=== PATIENT | female | born 1960 | race Caucasian/White ===

== ENCOUNTER 2017-07-07 05:49 | Emergency (ER) | payer SELFPAY ==
[2017-07-07] MEDS ORDERED: ONDANSETRON 4 MG/2 ML VIAL IVP ONE ×2 (06:00→06:43)
[2017-07-07] MEDS ORDERED: NS 1,000 ML IV ONE ×3 (06:01→07:00)
[2017-07-07 06:04] VITALS: TEMP 97.5
--- NOTE | 2017-07-07 06:15 | EDPHY ---
H & P Source: Patient Exam Limitations: No limitations - Personal History LMP (Females 10-55): Post Menopausal - Medical/Surgical History Hx Asthma: No Hx Chronic Respiratory Disease: No Hx Diabetes: No Hx Cardiac Disease: No Hx Renal Disease: No Hx Cirrhosis: No Hx Alcoholism: No Hx HIV/AIDS: No Hx Splenectomy or Spleen Trauma: No - Family History Significant Family History: No pertinent family hx - Social History Smoking Status: Never smoked Alcohol Use: None Drug Use: None Time Seen by Provider: 07/07/17 05:53 HPI/ROS: CHIEF COMPLAINT: vomiting for 24 hours HISTORY OF PRESENT ILLNESS: this is a medically stable 56-year-old female who is status post lap cholecystectomy several years ago. Other than that for the most part she is well and healthy. She does take Paxil for chronic depression and has been on that for years without any dose changes. Of note is that she did have a delta problem some 2 days ago was seen by an oral surgeon with plans for root canal later this month. As such she began a course of clindamycin having completed 2 doses some 36 hours ago. She felt well the other night, some 36 hours ago. Went to bed feeling fine. There is no anorexia or loss of appetite that evening. Furthermore she has no sense of known exposure. Granted she does work but none of her coworkers have been ill. However, yesterday morning approximately 24 hours ago she woke with repetitive vomiting every hour or 2. She said she has not been able to keep anything down for some 24 hours and last oral intake was 36 hours ago. Subsequently she feels unsteady on her feet and lightheaded when she gets up. Fortunately, there has been no diarrhea. She has had no abdominal pain or flank pain or dysuria frequency your fevers or chills. No known exposure. No travel. No one else is ill Diarrhea risk factors: Travel: None Others: None Antibiotics: None Bad Food: None Bad Water: None Recent Surgery: None REVIEW OF SYSTEMS: Constitutional: No fever, no chills. Eyes: No discharge ENT: No sore throat. Cardiovascular: No chest pain, no palpitations. Respiratory: No cough, shortness of breath, or wheezing. Gastrointestinal: No nausea vomiting or diarrhea. No abdominal pain. Genitourinary: No hematuria or frequency. Musculoskeletal: No back pain. Skin: No rashes. Neurological: No headache. 10 point ROS otherwise negative (Timo,Wu J) - Physical Exam Exam: General Appearance: Alert, no distress. Afebrile. Normal phonation. No respiratory distress. Eyes: Pupils equal and round no pallor or injection. No icterus ENT, Mouth: Mucous membranes dry, including her teeth. Pharynx without erythema or exudate. TM Clear. Neck: No adenopathy. Supple. No JVD. Trachea in midline. Respiratory: There are no retractions, lungs are clear to auscultation. Chest wall: Nontender to palpation. No crepitus. Cardiovascular: Regular rate and rhythm, without murmur. Abdomen: Soft, minimal tenderness in the left upper quadrant, though notes that she had no abdominal pain per se until I started pressing on her. No masses, bowel sounds normal. Neurological: Ox3. No motor weakness. Sensation intact. Gait nl. Skin: Warm and dry, no rashes. Musculoskeletal: No joint swelling. Extremities: No edema. Psychiatric: Normal affect. Patient is oriented X 3. (Wu Greenwood) Constitutional: Initial Vital Signs Temperature (C) 36.4 C 07/07/17 06:01 Heart Rate 39 L 07/07/17 06:01 Respiratory Rate 16 07/07/17 06:01 Blood Pressure 121/83 H 07/07/17 06:01 O2 Sat (%) 97 07/07/17 06:01 O2 Delivery Mode Room Air Allergies/Adverse Reactions: Penicillins Adverse Reaction (Severe, Verified 07/07/17 05:59) DONOVAN Home Medications: Medication Instructions Recorded Paxannie 03/26/10 Clindamycin HCl [Clindamycin] 300 mg PO 07/07/17 ED Course/Re-evaluation: She was given initial doses Zofran 4 mg however 45 minutes later it needed to repeated. From the outside she was given IV fluids for volume depletion with dehydration with 500 cc bolus followed by another L and a half, for a total of 2 L. Her care was assumed at 0700 hours by the oncoming ER physician. Report given. ( Wu Greenwood) Differential Diagnosis: Differential diagnosis includes, but is not limited to: Gastroenteritis, dehydration, diverticulitis, hepatitis, pancreatitis, renal colic, kidney stones, ureterolithiasis, gastritis, mesenteric adenitis, food poisoning, bacterial dysentery. (Wu Greenwood) Other Provider: Upon re visiting the patient, she denies abdominal pain, she states she woke up yesterday morning with headache and vomiting. This is not the worst headache of her life, she has a prior hx of migraines. Pt continued to have nausea, she was given Reglan 10 mg and diphenhydramine 25 mg IV push. Labs were sent CBC within normal limits, CMP within normal limits ESR 32, slightly elevated Explained to patient given her headache associated with vomiting, will not her worst headache, that I would recommend a CT scan of the brain to rule out hemorrhage as the cause of her headache. She adamantly refused to CT scan at this time. After additional nausea medicines she felt markedly better was able to tolerate p.o., was discharge home with a ride And I recommended if her headache continued that she return for further evaluation. Impression Headache, possibly migraine in patient with a history of migraines Mild dehydration Vomiting In the ER she was given fluids, Zofran, Reglan, diphenhydramine and acetaminophen for headache. She did feel markedly improved Advise follow up with her primary care physician, advised immediate return if headache symptoms persist. (Aixa Bolton) - Data Points Laboratory Results: Laboratory Results 07/07/17 06:25 07/07/17 06:25 Medications Given: Discontinued Medications Acetaminophen (Tylenol 160mg/5ml Oral Liquid) 650 mg PO EDNOW ONE Stop: 07/07/17 07:07 Last Admin: 07/07/17 07:11 Dose: Not Given Acetaminophen (Tylenol 650/20.3ml Oral Liquid) 650 mg PO EDNOW ONE Stop: 07/07/17 07:11 Last Admin: 07/07/17 07:13 Dose: 650 mg Diphenhydramine HCl (Benadryl Injection) 25 mg IVP EDNOW ONE Stop: 07/07/17 07:51 Last Admin: 07/07/17 08:01 Dose: 25 mg Sodium Chloride (Ns) 1,000 mls @ 0 mls/hr IV EDNOW ONE; As Directed PRN Reason: Protocol Stop: 07/07/17 06:02 Last Admin: 07/07/17 06:19 Dose: 1,000 mls Sodium Chloride (Ns) 1,000 mls @ 0 mls/hr IV EDNOW ONE; As Directed PRN Reason: Protocol Stop: 07/07/17 06:48 Last Admin: 07/07/17 11:25 Dose: Not Given Sodium Chloride (Ns) 1,000 mls @ 0 mls/hr IV EDNOW ONE; Wide Open PRN Reason: Protocol Stop: 07/07/17 07:01 Last Admin: 07/07/17 07:00 Dose: 1,000 mls Metoclopramide HCl (Reglan Injection) 10 mg IVP EDNOW ONE Stop: 07/07/17 07:50 Last Admin: 07/07/17 07:58 Dose: 10 mg Ondansetron HCl (Zofran) 4 mg IVP EDNOW ONE Stop: 07/07/17 06:01 Last Admin: 07/07/17 06:20 Dose: 4 mg Ondansetron HCl (Zofran) 4 mg IVP EDNOW ONE Stop: 07/07/17 06:44 Last Admin: 07/07/17 06:48 Dose: 4 mg Departure - Departure Disposition: Home, Routine, Self-Care Clinical Impression: Headache, Vomiting, Mild dehydration Condition: Good Instructions: Dehydration (ED), General Headache (ED) Referrals: Patient,NotPresent [Primary Care Provider] - As per Instructions
[2017-07-07] MEDS ORDERED: ACETAMINOPHEN 160 MG/5 ML UDCUP PO ONE (07:06)
[2017-07-07] MEDS ORDERED: ACETAMINOPHEN 650 MG/20.3 ML UDCUP ONE (07:08)
[2017-07-07] MEDS ORDERED: ACETAMINOPHEN 650 MG/20.3 ML UDCUP PO ONE (07:10)
[2017-07-07] MEDS ORDERED: METOCLOPRAMIDE 10 MG/2 ML VIAL IVP ONE (07:49)
[2017-07-07 07:57] VITALS: PULSE 83; RESP 18
[2017-07-07 08:21] LABS: % IMMATURE GRANULYOCYTES 0.3 % (0.0-1.1); ABSOLUTE IMMATURE GRANULOCYTES 0.02 10^3/uL (0.00-0.10); ADD DIFF? NO; ADD MORPH? NO; ADD SCAN? NO; ATYPICAL LYMPHOCYTE FLAG 20 (0-99); FRAGMENT RBC FLAG 0 (0-99); LEFT SHIFT FLG 0 (0-99); LIPEMIA HEMOLYSIS FLAG 90 (0-99); MEAN CELL HEMOGLOBIN 31.3 pg (27.9-34.1); MEAN CELL HEMOGLOBIN CONCENTR. 35.1 g/dL (32.4-36.7); MEAN CELL VOLUME 88.9 fL (81.5-99.8); PLATELET CLUMPS FLAG 0 (0-99); PLATELET COUNT 288 10^3/uL (150-400); RED BLOOD CELL COUNT 4.16 10^6/uL (4.18-5.33); RED CELL DISTRIBUTION WIDTH 12.7 % (11.5-15.2)
[2017-07-07 08:31] LABS: ALANINE AMINOTRANSFERASE 31 IU/L (9-52); ALBUMIN 3.8 g/dL (3.5-5.0); ALKALINE PHOSPHATASE 74 IU/L (38-126); ANION GAP 13 mEq/L (8-16); ASPARTATE AMINOTRANSFERASE 23 IU/L (14-46); BILIRUBIN,TOTAL 0.9 mg/dL (0.1-1.4); CARBON DIOXIDE 21 mEq/l (22-31); CHLORIDE 104 mEq/L (97-110); CREATININE 0.5 mg/dL (0.6-1.0); GLOMERULAR FILTRATION RATE > 60; GLUCOSE 112 mg/dL (70-100); POTASSIUM 3.5 mEq/L (3.5-5.2); SODIUM 138 mEq/L (134-144); TOTAL PROTEIN 6.8 g/dL (6.3-8.2)
[2017-07-07 08:38] LABS: SEDIMENTATION RATE 32 MM/HR (0-30)
[2017-07-07 11:25] VITALS: BP 110/83; O2SAT 97
== END 2017-07-07 08:39 | disposition home or self-care (01) ==
LOC: CED 05:49
DX: E86.0 Dehydration (principal); R51 Headache; E86.9 Volume depletion, unspecified
CPT/HCPCS: 80053-PO; 85025-PO; 85652-PO; 96374; J1200; J2405; J2765